=== PATIENT | female | born 1995 | race Caucasian/White ===

== ENCOUNTER 2020-12-23 01:53 | Inpatient (IN) | payer OTHER ==
[2020-12-23] MEDS ORDERED: MAGNESIUM SULFATE IN WATER 4 GM/100 ML IVPB IVPB ONE (02:11)
[2020-12-23] MEDS ORDERED: LABETALOL HCL 5 MG/1 ML (100MG/20 ML VIAL) IVPUSH ONE ×2 (02:14→03:26)
[2020-12-23] MEDS ORDERED: LABETALOL HCL INJECTION 300 MG in SODIUM CHLORIDE 240 ML IV SCH (02:15)
[2020-12-23] MEDS ORDERED: MAGNESIUM SULFATE IN WATER 2 GM/50 ML IVPB IVPB ONE (02:26)
[2020-12-23] MEDS ORDERED: LABETALOL HCL 5 MG/1 ML (100MG/20 ML VIAL) ONE ×2 (02:38→06:58)
[2020-12-23 02:45] LABS: BASO % 0.5 % (0-2.0); EOS % 0.6 % (0-4.5); HEMATOCRIT 37.1 % (32.4-45.2); HEMOGLOBIN 12.7 GM/dL (10.7-15.3); LYMPH % 23.4 % (8-40); MCH 31.2 pg (25.7-33.7); MCHC 34.1 g/dl (32.0-36.0); MEAN CELL VOLUME 91.4 fl (80-96); MEAN PLT VOLUME 9.3 fl (7.5-11.1); MONO % 5.3 % (3.8-10.2); NEUT % 70.2 % (42.8-82.8); PLATELET COUNT 195 10^3/uL (134-434); RBC 4.06 M/mm3 (3.60-5.2); RDW 13.9 % (11.6-15.6); WHITE BLOOD COUNT 13.7 K/mm3 (4.0-10.0)
[2020-12-23 03:09] LABS: CHLORIDE 110 mmol/L (98-107); SODIUM 140 mmol/L (136-145)
[2020-12-23 03:10] LABS: CALCIUM 8.3 mg/dL (8.5-10.1)
[2020-12-23 03:11] LABS: ALBUMIN 2.6 g/dl (3.4-5.0); ANION GAP 11 MMOL/L (8-16); BLOOD UREA NITROGEN 11.2 mg/dL (7-18); CO2 19 mmol/L (21-32)
[2020-12-23 03:12] LABS: GLUCOSE,RANDOM 75 mg/dL (74-106)
[2020-12-23 03:14] LABS: CREATININE 0.6 mg/dL (0.55-1.3); SGOT/AST 16 U/L (15-37); SGPT/ALT 15 U/L (13-61)
[2020-12-23 03:16] LABS: BILIRUBIN,TOTAL 0.1 mg/dL (0.2-1); TOT PROT 6.7 g/dl (6.4-8.2)
[2020-12-23 03:17] LABS: ALK PHOS 145 U/L (45-117)
[2020-12-23] MEDS ORDERED: PHENYLEPHRINE HCL 10 MG/1 ML SINGLE DOSE VIAL ONE (05:26)
[2020-12-23] MEDS ORDERED: morphine SULFATE (PF) 1 MG/2 ML SYRINGE ONE (05:26)
[2020-12-23] MEDS ORDERED: ceFAZolin SODIUM 1 GM VIAL ONE ×3 (05:27→18:14)
[2020-12-23] MEDS ORDERED: ePHEDrine SULFATE 50 MG/1 ML AMPULE ONE (05:29)
[2020-12-23] MEDS ORDERED: SUCCINYLCHOLINE CHLORIDE 200 MG/10 ML SYRINGE ONE (05:31)
[2020-12-23] MEDS ORDERED: PROPOFOL 20 ML ONE (05:32)
[2020-12-23 05:50] LABS: INR 0.86 (0.83-1.09); PROTHROMBIN TIME (PATIENT) 10.1 SEC (9.7-13.0)
[2020-12-23 05:52] LABS: ACTIVATED PTT 23.7 SECONDS (25.2-36.5)
[2020-12-23] MEDS ORDERED: SODIUM CHLORIDE 0.9% P/F 10 ML VIAL IJ ONE (05:53)
[2020-12-23] MEDS ORDERED: CITRIC ACID/SODIUM CITRATE 30 ML UNIT-DOSE CUP PO ONE (05:54)
[2020-12-23] MEDS ORDERED: SENNOSIDES/DOCUSATE COMBO (SENNA PLUS) TABLET (UD) PO PRN (05:55)
[2020-12-23] MEDS ORDERED: METHYLERGONOVINE MALEATE 0.2 MG/1 ML AMP IM PRN (05:55)
[2020-12-23] MEDS ORDERED: ACETAMINOPHEN 325 MG TABLET (FP) PO PRN ×2 (05:55→07:40)
[2020-12-23] MEDS ORDERED: ELECTROLYTE-148 SOLN 1,000 ML IV SCH (06:00)
[2020-12-23] MEDS ORDERED: OXYTOCIN 20 UNITS in 0.9% NS 20 UNIT/1,000 ML INFUS.BAG IV SCH (06:00)
[2020-12-23 06:21] LABS: RETICULOCYTES 2.02 % (0.5-1.5)
[2020-12-23 06:26] LABS: EPI CELLS 5 /uL (0-25.1); HYALINE CASTS 1 /uL (0-3.1); URINE APPEARANCE CLEAR; URINE BACTERIA 14 /uL (0-1359); URINE BILIRUBIN NEGATIVE (NEGATIVE); URINE COLOR YELLOW; URINE GLUCOSE (UA) NEGATIVE (NEGATIVE); URINE KETONE NEGATIVE (NEGATIVE); URINE LEUK ESTERASE NEGATIVE (NEGATIVE); URINE NITRITE NEGATIVE (NEGATIVE); URINE PROTEIN 2+ (NEGATIVE); URINE RBC 12 /uL (0-23.9); URINE UROBILINOGEN 0.2 mg/dL (0.2-1.0); URINE WBC 4 /uL (0-25.8)
[2020-12-23] MEDS ORDERED: OXYTOCIN 10 UNIT/ML 10ML MDV ONE (06:28)
[2020-12-23] MEDS ORDERED: DEXAMETHASONE SOD PHOSPHATE 4 MG/1 ML VIAL ONE (06:42)
[2020-12-23] MEDS ORDERED: ONDANSETRON 4 MG/2 ML VIAL ONE (06:42)
[2020-12-23 06:58] LABS: HIV INTERPRETATION NEGATIVE (NEGATIVE)
[2020-12-23 07:03] VITALS: BMI 29.3
[2020-12-23 07:33] LABS: CORD BASE EXCESS -2.6 mmol/L (0-2); CORD HCO3 22.6 mmHg (20-29); CORD PCO2 40.8 mmHg (30-78); CORD pH 7.362 (7.14-7.44)
[2020-12-23] MEDS: MAGNESIUM SULFATE 20GM/500ML - 20 GM/500 ML INFUS.BAG IVPB SCH ×2 (07:35→17:20)
[2020-12-23 07:36] LABS: CORD BASE EXCESS -2.6 mmol/L (0-2); CORD HCO3 21.9 mmHg (20-29); CORD PCO2 37.5 mmHg (30-78); CORD pH 7.385 (7.14-7.44)
[2020-12-23] MEDS ORDERED: MAGNESIUM SULFATE 20GM/500ML - 20 GM/500 ML INFUS.BAG ONE ×2 (07:37→17:22)
[2020-12-23] MEDS ORDERED: NIFEdipine E.R. 30 MG TABLET ONE (07:37)
[2020-12-23] MEDS: NIFEdipine E.R. 30 MG TABLET PO SCH (07:40)
[2020-12-23] MEDS ORDERED: ONDANSETRON 4 MG/2 ML VIAL IVPUSH PRN (07:40)
[2020-12-23] MEDS ORDERED: morphine SULFATE/PF 1 MG/2 ML (2cc Syringe - QUVA) EP ONE (07:40)
[2020-12-23 09:27] LABS: MAGNESIUM 1.8 mg/dL (1.8-2.4)
[2020-12-23 09:30] LABS: URIC ACID 6.2 mg/dL (2.6-7.2)
[2020-12-23] MEDS ORDERED: OXYTOCIN 20 UNITS in 0.9% NS 20 UNIT/1,000 ML INFUS.BAG IV ONE (09:30)
[2020-12-23] MEDS: FERROUS SO4 325 MG TABLET (FP) PO SCH ×2 (09:38→23:00)
[2020-12-23] MEDS: PRENATAL VITAMINS W/ FOLIC ACID TABLET (FP) PO SCH (09:39)
[2020-12-23] MEDS ORDERED: CEFAZOLIN 1 GM/D5W 50 ML IVPB SCH (10:00)
[2020-12-23] MEDS ORDERED: CEFAZOLIN 1 GM in DEXTROSE 5%-WATER - 50 ML IVPB SCH (10:00)
[2020-12-23] MEDS: CEFAZOLIN 1 GM in DEXTROSE 5%-WATER - 50 ML IVPB SCH ×2 (10:59→18:18)
[2020-12-23] MEDS ORDERED: LABETALOL HCL 200 MG TABLET (FP) PO SCH (14:00)
[2020-12-23] MEDS ORDERED: FERROUS SO4 325 MG TABLET (FP) ONE (23:54)
[2020-12-24] MEDS ORDERED: FERROUS SO4 325 MG TABLET (FP) ONE (00:03)
[2020-12-24] MEDS: CEFAZOLIN 1 GM in DEXTROSE 5%-WATER - 50 ML IVPB SCH (03:20)
[2020-12-24] MEDS ORDERED: ceFAZolin SODIUM 1 GM VIAL ONE (03:31)
[2020-12-24] MEDS ORDERED: ACETAMINOPHEN 325 MG TABLET (FP) ONE (03:45)
[2020-12-24 05:50] LABS: BASO % 0.2 % (0-2.0); EOS % 0.2 % (0-4.5); HEMATOCRIT 31.3 % (32.4-45.2); LYMPH % 16.8 % (8-40); MCH 32.1 pg (25.7-33.7); MEAN CELL VOLUME 91.8 fl (80-96); MEAN PLT VOLUME 9.2 fl (7.5-11.1); MONO % 5.7 % (3.8-10.2); NEUT % 77.1 % (42.8-82.8); PLATELET COUNT 191 10^3/uL (134-434); RBC 3.41 M/mm3 (3.60-5.2); RDW 14.1 % (11.6-15.6); WHITE BLOOD COUNT 14.1 K/mm3 (4.0-10.0)
[2020-12-24] MEDS ORDERED: oxyCODONE HCL 5 MG TABLET PO PRN ×2 (05:55)
[2020-12-24] MEDS ORDERED: BISACODYL 10 MG SUPP.RECT RC PRN (05:56)
[2020-12-24] MEDS: FERROUS SO4 325 MG TABLET (FP) PO SCH ×2 (09:17→21:04)
[2020-12-24] MEDS: PRENATAL VITAMINS W/ FOLIC ACID TABLET (FP) PO SCH (09:17)
[2020-12-24] MEDS: NIFEdipine E.R. 30 MG TABLET PO SCH (09:17)
[2020-12-24] MEDS: SIMETHICONE 80 MG TAB.CHEW (FP) PO PRN ×2 (12:49→21:04)
[2020-12-24] MEDS: IBUPROFEN 600 MG TABLET (FP) PO PRN ×2 (12:49→21:04)
[2020-12-24] MEDS: LABETALOL HCL 200 MG TABLET (FP) PO PRN (21:18)
[2020-12-25] MEDS: IBUPROFEN 600 MG TABLET (FP) PO PRN (07:31)
[2020-12-25] MEDS: FERROUS SO4 325 MG TABLET (FP) PO SCH ×2 (09:06→21:21)
[2020-12-25] MEDS: PRENATAL VITAMINS W/ FOLIC ACID TABLET (FP) PO SCH (09:06)
[2020-12-25] MEDS: NIFEdipine E.R. 30 MG TABLET PO SCH (09:06)
[2020-12-25 09:42] LABS: ALBUMIN 2.2 g/dl (3.4-5.0); BLOOD UREA NITROGEN 11.8 mg/dL (7-18); CALCIUM 7.1 mg/dL (8.5-10.1)
[2020-12-25 09:46] LABS: BILIRUBIN,TOTAL 0.7 mg/dL (0.2-1); CREATININE 0.6 mg/dL (0.55-1.3)
[2020-12-25 09:47] LABS: TOT PROT 5.5 g/dl (6.4-8.2)
[2020-12-25] MEDS: LABETALOL HCL 200 MG TABLET (FP) PO PRN (15:04)
[2020-12-26 08:39] LABS: BASO % 0.3 % (0-2.0); EOS % 1.3 % (0-4.5); HEMATOCRIT 31.4 % (32.4-45.2); HEMOGLOBIN 11.1 GM/dL (10.7-15.3); LYMPH % 20.2 % (8-40); MCH 32.6 pg (25.7-33.7); MCHC 35.3 g/dl (32.0-36.0); MEAN CELL VOLUME 92.3 fl (80-96); MEAN PLT VOLUME 8.5 fl (7.5-11.1); MONO % 5.5 % (3.8-10.2); NEUT % 72.7 % (42.8-82.8); PLATELET COUNT 176 10^3/uL (134-434); RDW 14.6 % (11.6-15.6); WHITE BLOOD COUNT 9.7 K/mm3 (4.0-10.0)
[2020-12-26] MEDS: PRENATAL VITAMINS W/ FOLIC ACID TABLET (FP) PO SCH (09:31)
[2020-12-26] MEDS: NIFEdipine E.R. 30 MG TABLET PO SCH (09:31)
[2020-12-26] MEDS: FERROUS SO4 325 MG TABLET (FP) PO SCH ×2 (09:31→23:17)
[2020-12-26] MEDS: SIMETHICONE 80 MG TAB.CHEW (FP) PO PRN ×2 (09:31→23:18)
[2020-12-26] MEDS: IBUPROFEN 600 MG TABLET (FP) PO PRN ×2 (09:31→23:17)
[2020-12-26] MEDS ORDERED: ELECTROLYTE-148 SOLN 1,000 ML IV SCH (11:00)
[2020-12-27 09:27] VITALS: BP 137/89; PULSE 95; TEMP 98.3
[2020-12-27] MEDS: PRENATAL VITAMINS W/ FOLIC ACID TABLET (FP) PO SCH (09:33)
[2020-12-27] MEDS: NIFEdipine E.R. 30 MG TABLET PO SCH (09:33)
[2020-12-27] MEDS: FERROUS SO4 325 MG TABLET (FP) PO SCH (09:33)
== END 2020-12-27 18:00 | disposition home or self-care (01) | DRG 540 ==
LOC: JER 01:53 → JERBED 02:15 → JLDR 04:57 → J3W 12-24 04:07
PROVIDERS: ADMIT Obstetrics & Gynecology; ATTEND Obstetrics & Gynecology
PROC: 10D00Z1 Extraction of Products of Conception, Low, Open Approach (ICD-10-PCS; principal; 2020-12-23)
DX: O14.14 Severe pre-eclampsia complicating childbirth (principal); P03.89 Newborn affected by other specified complications of labor and delivery; O13.5 Gestational [pregnancy-induced] hypertension without significant proteinuria, complicating the puerperium; Z3A.34 34 weeks gestation of pregnancy; Z37.0 Single live birth
CPT/HCPCS: 36415; 36600; 80053; 81003; 82803; 82977; 83010; 83735; 84450; 84460; 84484; 84550; 85025; 85032; 85045; 85610; 85730; 86780; 86850; 86900; 86901; 87086; 87389; 88307-TC; 93005; 93010; 99285-25; C9803; U0003; U0005